=== PATIENT | male | born 1935 | race Caucasian/White ===

== ENCOUNTER 2020-07-02 05:39 | Emergency (ER) | payer MEDICARE, BC ==
[~2020-07-02] VITALS: Ht 182.9 cm; Wt 112.7 kg
[~2020-07-02 05:39] MED LIST: ASPIRIN EC81 M1 PO; COUMADIN3 MG PO; COUMADIN5 MG PO; COZAAR100 MG PO; CRESTOR5 MG PO; LEVOXYL125 MCG PO; NITROQUICK0.4 MG SL; PLAVIX75 MG PO; XALATAN 0.0052.5 ML EACH EYE; ZANAFLEX2 M1 PO
[2020-07-02 05:42] VITALS: Ht 182.9 cm; Wt 112.7 kg
[2020-07-02] MEDS ORDERED: TIMOPTIC 0.25% O5 M1 EACH EYE (06:03)
[2020-07-02] MEDS ORDERED: LOPRESSOR25 MG PO (06:04)
[2020-07-02] MEDS ORDERED: XALATAN 0.0052.5 ML EACH EYE (06:04)
[2020-07-02] MEDS ORDERED: JANTOVEN3 MG PO (06:04)
[2020-07-02] MEDS ORDERED: CRESTOR10 MG PO (06:05)
[2020-07-02] MEDS ORDERED: COZAAR100 MG PO (06:05)
[2020-07-02] MEDS ORDERED: JANTOVEN1 MG PO (06:05)
[2020-07-02] MEDS ORDERED: ISOSORBIDE MONO60 M1 PO (06:06)
[2020-07-02] MEDS ORDERED: SYNTHROID125 MCG PO (06:06)
[2020-07-02] MEDS ORDERED: HYDROCHLOROTH12.5 M1 PO (06:06)
[2020-07-02] MEDS ORDERED: NORVASC2.5 MG (06:07)
[2020-07-02 06:10] LABS: BASOPHILS 0.2 % (0-2); EOSINOPHILS 1.4 % (0-7); HEMATOCRIT 44.1 % (42.0-54.0); HEMOGLOBIN 14.3 g/dL (13.5-17.5); IMMATURE GRANULOCYTES 0.3 % (0-5); LYMPHOCYTE ABS# 0.65 10x3/uL (1.32-3.57); LYMPHOCYTES 11.3 % (15-50); MCH 30.8 pg (26.0-34.0); MCHC 32.4 g/dL (31.0-37.0); MCV 94.8 fL (80.0-100.0); MONOCYTES 5.4 % (2-11); NEUTROPHILS 81.4 % (40-80); PLATELET COUNT 133 10x3/uL (130-400); RBC 4.65 10x6/uL (4.20-6.10); RDW 13.8 % (11.5-14.5); WBC 5.8 10x3/uL (4.8-10.8)
[2020-07-02 06:25] LABS: CALC OSMOLALITY 281 mosm/kg (275-300); CARBON DIOXIDE 27.9 mmol/L (21.0-32.0); CHLORIDE - SERUM 104 mmol/L (98-107); CREATININE - SERUM 1.6 mg/dL (0.6-1.3); GLUCOSE 143 mg/dL (74-106); POTASSIUM - SERUM 4.5 mmol/L (3.5-5.1); SODIUM 138 mmol/L (136-145); UREA NITROGEN 23 mg/dL (7-18); eGFR NON AFRICAN AMERICAN 44 mL/min (90-120)
[2020-07-02 06:41] LABS: ALBUMIN 3.6 g/dL (3.4-5.0); ALKALINE PHOSPHATASE 110 U/L (30-120); ALT (SGPT) 16 U/L (10-68); BILIRUBIN - TOTAL 1.33 mg/dL (0.2-1.3); CKMB 1.4 U/L (0.0-3.6); CREATINE KINASE 53 UL (21-232); MAGNESIUM - SERUM 2.3 mg/dL (1.8-2.4); TROPONIN-I 0.023 ng/mL (0.000-0.060)
[2020-07-02 06:52] VITALS: BP 145/87
[2020-07-02 07:25] LABS: APTT 37.1 SECONDS (22.8-39.4); INR 2.56 (0.85-1.17); PROTIME 25.6 SECONDS (11.6-15.0)
== END 2020-07-02 07:00 | disposition home or self-care (01) ==
LOC: D.ER 05:39
PROVIDERS: Family Medicine
DX: R07.9 Chest pain, unspecified (principal); I10 Essential (primary) hypertension